=== PATIENT | male | born 1940 | race Caucasian/White ===

== ENCOUNTER 2019-12-06 12:45 | Emergency (ER) | payer OTHER ==
[2019-12-06] MEDS ORDERED: AMOX/K CLAV 875 MG TAB ONE (13:18)
[2019-12-06] MEDS ORDERED: TETANUS & DIPHTHERIA TOX,ADULT 0.5 ML VIAL ONE (13:18)
--- NOTE | 2019-12-06 13:45 | EDPHYS ---
Physician Documentation [facility] Name: Sylvester Vazquez Age: 79 yrs Sex: Male : 1940 Arrival Date: 12/06/2019 Time: 12:48 Bed 5 Private MD: Gabriella George C ED Physician Lew Talley HPI: 12/06 13:33 This 79 yrs old Male presents to ER via Ambulatory with complaints of Cat la1 Bite. 13:33 The patient was bitten on the right hand, by a cat, while approaching the animal, at la1 home. Onset: The symptoms/episode began/occurred last night. Animal information: The animal was reported to appear healthy. Animal's vaccinations are up to date. Secondary to the bite the patient reports multiple lacerations, that are superficial. Associated signs and symptoms: Pertinent positives: erythema at site, tenderness, Pertinent negatives: fever, numbness distal to wound. Severity of symptoms: At their worst the symptoms were mild. The patient has not experienced similar symptoms in the past. Historical: - Allergies: 13:00 No Known Allergies; aa5 - Immunization history:: Last tetanus immunization: unknown. - Coronavirus screen:: The patient has NOT traveled to [place], [place], or [place] in the past 14 days. The patient has NOT had contact with known/suspected case of Coronavirus?. - Social history:: Smoking status: Patient denies any tobacco usage or history of. - Ebola Screening: : No symptoms or risks identified at this time. ROS: 13:34 Constitutional: Negative for fever, chills, and weight loss, Eyes: Negative for injury, la1 pain, redness, and discharge, ENT: Negative for injury, pain, and discharge, Neck: Negative for injury, pain, and swelling, Cardiovascular: Negative for chest pain, palpitations, and edema, Respiratory: Negative for shortness of breath, cough, wheezing, and pleuritic chest pain, Abdomen/GI: Negative for abdominal pain, nausea, vomiting, diarrhea, and constipation, Back: Negative for injury and pain, : Negative for injury, bleeding, discharge, and swelling. 13:34 Neuro: Negative for headache, weakness, numbness, tingling, and seizure, Endocrine: Negative for neck swelling, polydipsia, polyuria, polyphagia, and marked weight changes. 13:34 MS/extremity: Positive for erythema, laceration, pain, of the right hand. Exam: 13:35 Constitutional: This is a well developed, well nourished patient who is awake, alert, la1 and in no acute distress. Head/Face: Normocephalic, atraumatic. Eyes: Pupils equal round and reactive to light, extra-ocular motions intact. Lids and lashes normal. Conjunctiva and sclera are non-icteric and not injected. Cornea within normal limits. Periorbital areas with no swelling, redness, or edema. ENT: Mucous membranes moist. Neck: Trachea midline, Chest/axilla: Normal chest wall appearance and motion. Cardiovascular: Regular rate and rhythm with a normal S1 and S2. Respiratory: Lungs have equal breath sounds bilaterally, clear to auscultation Abdomen/GI: Soft, non-tender, with normal bowel sounds. Back: No spinal tenderness. No costovertebral tenderness. Full range of motion. 13:35 Skin: Appearance: normal except for affected area, injury, laceration(s), that can be described as irregular, jagged, without bleeding, superficial to right hand and wrist, erythema that is mild to dorsum of right hand, NVI, FROM.. Vital Signs: 13:00 Weight 81.65 kg (R); Height 6 ft. 1 in. (185.42 cm) (R); Pain 5/10; aa5 13:04 BP 155 / 75; Pulse 76; Resp 17; Temp 97.6(TE); Pulse Ox 96% on R/A; tw2 13:00 Body Mass Index 23.75 (81.65 kg, 185.42 cm) aa5 MDM: 12:54 Patient medically screened. la1 13:38 Data reviewed: vital signs, nurses notes, radiologic studies, and as a result, I will la1 discharge patient. Data interpreted: Pulse oximetry: on room air. Counseling: I had a detailed discussion with the patient and/or guardian regarding: the historical points, exam findings, and any diagnostic results supporting the discharge/admit diagnosis, radiology results, the need for outpatient follow up, a hand specialist, to return to the emergency department if symptoms worsen or persist or if there are any questions or concerns that arise at home. Special discussion: I discussed in detail with the patient the higher chance of wound infection based on his presenting history. 12/06 13:03 Order name: Hand Right 3 View XRAY la1 Administered Medications: 13:21 Drug: Augmentin 875 mg Route: PO; jl7 13:47 Follow up: Response: No adverse reaction 13:22 Drug: Tetanus-Diphtheria Toxoid Adult 0.5 ml {[employer]: [employer]. Exp: jl7 09/29/2021. Lot #: [id number]. } Route: IM; Site: right deltoid; 13:47 Follow up: Response: No adverse reaction 7 Disposition: 13:50 Co-signature as Attending Physician, Lew Talley MD. rn Disposition: 12/06/19 13:39 Discharged to Home. Impression: Cat bite to right hand. - Condition is Stable. - Discharge Instructions: Animal Bite, Liob-ax-Dgqb, Wound Check, Animal Bite. - Prescriptions for Augmentin 875- 125 mg Oral Tablet - take 1 tablet by ORAL route every 12 hours for 10 days; 20 tablet. - Medication Reconciliation Form, Thank You Letter, Antibiotic Education form. - Follow up: Private Physician; When: 2 - 3 days; Reason: Recheck today's complaints, Re-evaluation by your physician. - Problem is new. - Symptoms have improved. Signatures: Dispatcher [employer] EDMS Lew Talley MD MD rn Calderon, Audri RN RN aa5 Marco Anne, ELECTRIC PILE DRIVER OPERATOR-C ELECTRIC PILE DRIVER OPERATOR-Cla1 Iris Forbes RN RN jl7 Corrections: (The following items were deleted from the chart) 13:49 13:39 12/06/2019 13:39 Discharged to Home. Impression: Cat bite to right hand. jl7 Condition is Stable. Forms are Medication Reconciliation Form, Thank You Letter, Antibiotic Education, Prescription Opioid Use. Follow up: Private Physician; When: 2 - 3 days; Reason: Recheck today's complaints, Re-evaluation by your physician. Problem is new. Symptoms have improved. la1
--- NOTE | 2019-12-06 13:45 | ER ---
Nurse's Notes [facility] Name: Sylvester Vazquez Age: 79 yrs Sex: Male : 1940 Arrival Date: 12/06/2019 Time: 12:48 Bed 5 Private MD: Gabriella George C Diagnosis: Cat bite to right hand Presentation: 12/06 12:50 Presenting complaint: Patient states: "my cat bit me last night". Multiple bite corea aa5 noted to right hand and right wrist. 12:50 Transition of care: patient was not received from another setting of care. Onset of aa5 symptoms was December 2019. Risk Assessment: Do you want to hurt yourself or someone else? Patient reports no desire to harm self or others. Initial Sepsis Screen: Does the patient meet any 2 criteria? No. Patient's initial sepsis screen is negative. Does the patient have a suspected source of infection? No. Patient's initial sepsis screen is negative. Care prior to arrival: None. 12:50 Acuity: MIN 4 aa5 12:50 Method Of Arrival: Ambulatory aa5 Triage Assessment: 12:55 Bite description: bite sustained to right hand was sustained 12-24 hours ago. by a cat. tw2 General: Appears in no apparent distress. Behavior is calm, cooperative, appropriate for age. Pain: Complains of pain in right hand. 13:46 Bite description: animal information: vaccination(s) is unknown. jl7 Historical: - Allergies: 13:00 No Known Allergies; aa5 - Immunization history:: Last tetanus immunization: unknown. - Coronavirus screen:: The patient has NOT traveled to [place], [place], or [place] in the past 14 days. The patient has NOT had contact with known/suspected case of Coronavirus?. - Social history:: Smoking status: Patient denies any tobacco usage or history of. - Ebola Screening: : No symptoms or risks identified at this time. Screenin:52 Abuse screen: Denies threats or abuse. Nutritional screening: No deficits noted. tw2 Tuberculosis screening: No symptoms or risk factors identified. Fall Risk Secondary diagnosis (15 points) impaired mobility. Assessment: 12:52 General: Appears in no apparent distress. Behavior is calm, cooperative, appropriate tw2 for age. Neuro: Level of Consciousness is awake, alert, obeys commands, Oriented to person, place, time, situation. Cardiovascular: Patient's skin is warm and dry. Respiratory: Airway is patent Respiratory effort is even, unlabored, Respiratory pattern is regular, symmetrical. GI: No signs and/or symptoms were reported involving the gastrointestinal system. Derm: Skin is intact, is healthy with good turgor, Skin is pink, warm \\T\\ dry. Injury Description: Bite sustained to right hand caused by a cat, is full thickness, infected. 13:48 Reassessment: Patient appears in no apparent distress at this time. No changes from tw2 previously documented assessment. Patient and/or family updated on plan of care and expected duration. Pain level reassessed. Patient is alert, oriented x 3, equal unlabored respirations, skin warm/dry/pink. Vital Signs: 13:00 Weight 81.65 kg (R); Height 6 ft. 1 in. (185.42 cm) (R); Pain 5/10; aa5 13:04 BP 155 / 75; Pulse 76; Resp 17; Temp 97.6(TE); Pulse Ox 96% on R/A; tw2 13:00 Body Mass Index 23.75 (81.65 kg, 185.42 cm) aa5 ED Course: 12:48 Patient arrived in ED. mr 12:49 Gabriella George MD is Private Physician. mr 12:50 Marco Anne [facility]-C [facility]. la1 12:50 Lew Talley MD is Attending Physician. la1 12:50 Arm band placed on. aa5 12:50 Arm band placed on Patient placed in an exam room, on a stretcher. aa5 12:52 Cheryl Hurd RN is Primary Nurse. tw2 12:59 Triage completed. aa5 13:00 Patient has correct armband on for positive identification. Bed in low position. Call jl7 light in reach. Side rails up X 1. 13:48 No provider procedures requiring assistance completed. Patient did not have IV access jl7 during this emergency room visit. Administered Medications: 13:21 Drug: Augmentin 875 mg Route: PO; jl7 13:47 Follow up: Response: No adverse reaction jl7 13:22 Drug: Tetanus-Diphtheria Toxoid Adult 0.5 ml {[employer]: [employer]. Exp: jl7 09/29/2021. Lot #: [id number]. } Route: IM; Site: right deltoid; 13:47 Follow up: Response: No adverse reaction jl7 Outcome: 13:39 Discharge ordered by MD. colindres 13:48 Discharged to home ambulatory. jl7 13:48 Condition: stable 13:48 Discharge instructions given to patient, family, Instructed on discharge instructions, follow up and referral plans. medication usage, Demonstrated understanding of instructions, follow-up care, medications, Prescriptions given X 1. 13:49 Patient left the ED. jl7 Signatures: Judi Craig BrendanMaria Teresa, RN RN aa5 Marco Anne, ESCROW AGENT-C ESCROW AGENT-Cla1 Cheryl Hurd RN RN tw2 Iris Forbes RN RN jl7 Corrections: (The following items were deleted from the chart) 12:57 12:52 Arm band placed on tw2 aa5
--- NOTE | 2019-12-06 13:50 | RAD REPORT ---
EXAM DESCRIPTION: RAD - Hand Right 3 View - 12/06/2019 1:38 pm CLINICAL HISTORY: Right hand pain status post cat bite FINDINGS: No fracture or dislocation is seen. A radiopaque foreign body is not seen
== END 2019-12-06 13:49 | disposition home or self-care (01) ==
LOC: ER 12:45
DX: S61.451A Open bite of right hand, initial encounter (principal); W55.01XA Bitten by cat, initial encounter; Y93.9 Activity, unspecified; Y92.9 Unspecified place or not applicable; Z23 Encounter for immunization
CPT/HCPCS: 90471; 90714; 99283

== ENCOUNTER 2021-03-21 06:24 | Day surgery (SDC) | payer OTHER ==
[2021-03-19 12:43] LABS: Basophils % 0.6 % (0-1.3); Hematocrit 40.3 % (39.6-49.0); Lymphocytes % 13.7 % (15.3-44.8); MPV 8.1 fL (7.6-11.3); RBC Red Blood Cell Count 4.02 M/uL (4.33-5.43)
[2021-03-19 12:55] LABS: Potassium 5.1 mmol/L (3.5-5.1)
[2021-03-21] MEDS ORDERED: CEFAZOLIN/SWI 1gm 1 GM/10 ML SYR ONE (07:01)
[2021-03-21] MEDS ORDERED: Ringers Lactate 1,000 ML IV ONE (07:01)
[2021-03-21] MEDS ORDERED: propofoL 200 MG/20 ML VIAL IV ONE (07:29)
[2021-03-21] MEDS ORDERED: LIDOCAINE 1% MPF 5 ML VIAL ONE (07:29)
[2021-03-21] MEDS ORDERED: FENTANYL CITR 100 MCG/2 ML ONE (07:29)
[2021-03-21] MEDS ORDERED: KETOROLAC 30 MG/ML INJ ONE (08:06)
[2021-03-21] MEDS ORDERED: ONDANSETRON 4 MG/2 ML VIAL ONE (08:09)
--- NOTE | 2021-03-21 08:18 | P.BOP ---
Preoperative diagnosis: left knee pain with mechanical symptoms Postoperative diagnosis: Medial and lateral meniscal tears Primary procedure: debridement of medial and lateral meniscal tears Estimated blood loss: <10 ccs Anesthesia: General Complications: None Transferred to: Recovery Room
[2021-03-21 08:38] VITALS: TEMP 97
--- NOTE | 2021-03-21 08:40 | OP ---
Date of Procedure: 03/21/2021 Surgeon: Jordan Logan MD Preoperative Diagnosis: Left knee pain with mechanical symptoms. Postoperative Diagnosis: Left knee pain with mechanical symptoms. Procedure: Left knee arthroscopy with debridement of medial meniscal tear and lateral meniscal tear. Estimated Blood Loss: Less than 10 mL. Complications: No complications. Pathology Specimens: No pathology specimens. Indication For Operation: The patient is an 80-year-old male, who is a very active golfer, who came to see me with complaints of pain related to his left knee. X-rays were taken, which did not demonst rate very significant arthritic changes; however, the patient responded well to a corticosteroid inje ction and conservative measures. Unfortunately, his pain returned. Because of this, we obtained an MRI which demonstrated a probable medial meniscal tear. Despite this, we decided to continue to carlos t this conservatively with an injection and continued conservative management. He has had recurrent mechanical type symptoms and at this time requests more definitive treatment if possible. Risks, vincenzo efits, and alternatives to arthroscopy have been discussed with him. He states he understands things as presented and wishes to proceed. Description Of Procedure: The patient was taken to the operating room and placed in supine position. General anesthesia was obtained by staff. Following this, a well-padded tourniquet was placed on t he superior left thigh. Left lower extremity was prepped and draped in usual sterile fashion for pro cedure. Following this, a standard superior and medial arthroscopy portal was then placed with liber ation of a few mL of rather normal-appearing synovial fluid. This was followed by placement of infer ior lateral arthroscopy portal. The knee was then sequentially examined including the suprapatellar pouch, medial and lateral compartments, medial and lateral gutters as well as the notch and patellofe moral joint. Pertinent findings included what appeared to be a tear of the medial meniscus near its midbody portion with some overall fraying along its periphery. There were also found to be some henry ges of the tibial cartilage directly underlying this. On the lateral aspect, there did appear to be a small ribbon of very peripheral tear of the lateral meniscus. After this, a standard inferior and medial arthroscopy portal was then established using direct vision. A 3.5 shaver was then used to de bride back the medial meniscus to a firm, well contoured base which was hook stable to probe, palpati on throughout and a small amount of unstable chondral tissue was also removed directly underneath it. This was followed by removal of the small ribbon of the anterior horn of the lateral meniscus. The knee was again examined in all the above areas. No further pathology seen, which was amenable to ar throscopic intervention. Inferior arthroscopy portal was then stapled shut. Superior and medial art hroscopic portal was then stable after placement of Marcaine with epinephrine. The patient was then placed in a well-padded sterile dressing, awakened, and taken to recovery room in good condition. No complications. SE/MODL Voice ID: [id number] Report ID: [id number]
[2021-03-21 13:44] VITALS: BP 159/62; O2SAT 97
== END 2021-03-21 10:00 | disposition home or self-care (01) ==
LOC: OR 06:24
PROVIDERS: ATTEND Orthopaedic Surgery
PROC: 0SBD4ZZ Excision of Left Knee Joint, Percutaneous Endoscopic Approach (ICD-10-PCS; principal; 2021-03-21 07:30)
DX: M25.562 Pain in left knee (principal); Z20.822 Contact with and (suspected) exposure to COVID-19
CPT/HCPCS: 93005; 85025; 80048; 36415; 29877; U0003; J2704; J3010; J0690; J7120; J2405

== ENCOUNTER 2024-03-26 08:52 | Emergency (ER) | payer OTHER ==
--- OUTSIDE RECORDS SUMMARY | 2024-03-26 08:55 | XMS REPORT | Continuity of Care Document ---
Author Name Unknown Address [address] [facility] [address] [place] [address] [facility] thconnect Address [address] [facility] [address] [place] [address] Care Team Providers Care Executive Vp Name Role Phone YONY HERNANDEZ Primary Care Physician UnavailYony Kemp Attending Clinician Unavailable ANDRÉS LYON Attending Clinician Unavailab sandi Hooks, Ang Db Test Attending Clinician UnavailLane Gooden DO Attending Clinician [phone] Ashley Stovall Attending Clinician [phone] ASHLEY MINER Attending Clinician Unavailable LANE HOFFMAN Attending Clinician Unavail able Nurse, Adc Pob Immunization Attending Clinician Andrés Lawler MD Attending Clinician [phone] Doctor Unassigned, [place] Attending Clinician Shira Colvin CRNA Attending Clinician [phone] Demetra Joyce MD Attending Clinician [phone] Pob, Adc Lab Main Attending Clinician ANDRÉS Rankin Admitting Clinician Andrés Lemon MD Admitting Clinician [phone] Payers Payer Name Policy Type Policy Number Effective Date Expirati on Date Source [employer] MANAGED MEDICARE PPO-[id number] 2020 00:00:00 Allergies, Adverse Reactions, Alerts Allergy Name Allergy Type Status Severity Reaction(s) Onset Date Inactive Date Treating Clinician Comments Source CODEINE DRUG INGREDI Active Unknown-Cmnt 04-22 00:00: 00 [facility] Codeine Propensi ty to adverse reaction s Active Unknown - See comments 04-22 00:00: 00 Unable to sleep [facility] Social History Social Habit Start Date Stop Date Quantity Comments Source Exposure to SARS-CoV-2 (event) Unable to assess [facility] Tobacco use and exposure 2021-04-29 00:00:00 2021-04-29 00:00:00 Never used [facility] Sex Assigned At 1940 00:00:00 1940 00:00:00 [facility] Smoking Status Start Date Stop Date Source Unknown if ever smoked [facility] Former smoker 2021-04-29 00:00:00 2021-04-29 00:00:00 [facility] Medications Ordered Medication Name Filled Medication Name Start Date Stop Date Current Medication? Ordering Clinician Indication Dosage Frequency Signature (SIG) Comments Components Source amLODIPine 5 mg tablet 05-28 19:54: 59 Yes 5mg Take 5 mg by mouth daily. [facility] metoprolol succinate XL 25 mg 24 hr tablet 05-28 19:54: 59 Yes 25mg Take 25 mg by mouth daily. [facility] famotidine (PEPCID AC ORAL) 05-28 19:54: 59 Yes Take by mouth. [facility] ALPRAZolam 0.25 mg tablet 05-28 19:54: 59 Yes .25mg Take 0.25 mg by mouth 3 (three) times daily. [facility] rosuvastati n 5 mg tablet 05-28 19:54: 59 Yes 5mg Take 5 mg by mouth daily. [facility] dexamethaso ne (DECADRON PHOSPHATE) injection 05-28 18:11: 00 Yes PRN, Starting Wed05/28/21 at 1311, Until Discontinu ed, Routine, Intra-op [facility] EPINEPHrine 1:1,000 (1 mg/mL) (ADRENALIN) injection 05-28 18:11: 00 Yes PRN, Starting Wed05/28/21 at 1311, Until Discontinu ed, Routine, Intra-op [facility] DUOVISC (DUOVISC VISCO ELASTIC) 3 %-4 %(0.5 mL) 1 % (0.55 mL) intraocular injection 05-28 18:11: 00 Yes PRN, Starting Wed05/28/21 at 1311, Until Discontinu ed, Routine, [facility]-op [facility] ceFAZolin (ANCEF) injection 05-28 18:10: 00 Yes PRN, Starting Wed05/28/21 at 1310, Until Discontinu ed, JARRED, Intra-op [facility] carbachoL (MIOSTAT) 0.01 % intraocular injection 05-28 18:10: 00 Yes PRN, Starting Wed05/28/21 at 1310, Until Discontinu ed, Routine, Intra-op [facility] neomycin-po lymyxin-dex amethasone (MAXITROL) 3.5 mg/g-10,000 unit/g-0.1 % ophthalmic ointment 05-28 18:09: 00 Yes PRN, Starting Wed05/28/21 at 1309, Until Discontinu ed, Routine, Intra-op [facility] sodium chloride (NS) injection 05-28 18:09: 00 Yes PRN, Starting Wed05/28/21 at 1309, Until Discontinu ed, Routine, Intra-op [facility] balanced salt irrig soln comb1 (BSS PLUS) ophthalmic solution 500 mL bag 05-28 18:02: 00 Yes PRN, Starting Wed05/28/21 at 1302, Until Discontinu ed, Routine, Intra-op [facility] water for irrigation irrigation solution 05-28 17:58: 00 Yes PRN, Starting Wed05/28/21 at 1258, Until Discontinu ed, Routine, Intra-op [facility] Hyaluronida se, Human Recomb. (HYLENEX) injection 05-28 17:54: 00 Yes PRN, Starting Wed05/28/21 at 1254, Until Discontinu ed, Routine, Intra-op [facility] eye block syringe 11 mL 05-28 17:54: 00 Yes PRN, Starting Wed05/28/21 at 1254, Until Discontinu ed, Intra-op [facility] mydriatic #5 ophthalmic solution 0.5 mL syringe 05-28 17:00: 00 05-28 16:53 :00 No .5mL 0.5 mL, Left Eye, ONCE, 1 dose, Wed05/28/21 at 1200, Routine, DSU Pre-op [facility] lactated ringers IV infusion 1,000 mL 05-28 17:00: 00 05-28 17:07 :00 No 1000mL at 42 mL/hr, 1,000 mL, IV Infusion, ONCE, 1 dose, Wed05/28/21 at 1200, Routine, DSU Pre-op [facility] amLODIPine 5 mg tablet 05-28 14:54: 59 Yes 5mg Take 5 mg by mouth daily. [facility] metoprolol succinate XL 25 mg 24 hr tablet 05-28 14:54: 59 Yes 25mg Take 25 mg by mouth daily. [facility] famotidine (PEPCID AC ORAL) 05-28 14:54: 59 Yes Take by mouth. [facility] ALPRAZolam 0.25 mg tablet 05-28 14:54: 59 Yes .25mg Take 0.25 mg by mouth 3 (three) times daily. [facility] rosuvastati n 5 mg tablet 05-28 14:54: 59 Yes 5mg Take 5 mg by mouth daily. [facility] ALPRAZolam 0.25 mg tablet 04-30 18:02: 17 Yes .25mg Take 0.25 mg by mouth 3 (three) times daily. [facility] rosuvastati n 5 mg tablet 04-30 18:02: 17 Yes 5mg Take 5 mg by mouth daily. [facility] amLODIPine 5 mg tablet 04-30 18:02: 17 Yes 5mg Take 5 mg by mouth daily. [facility] metoprolol succinate XL 25 mg 24 hr tablet 04-30 18:02: 17 Yes 25mg Take 25 mg by mouth daily. [facility] famotidine (PEPCID AC ORAL) 04-30 18:02: 17 Yes Take by mouth. [facility] amLODIPine 5 mg tablet 04-30 17:52: 49 Yes 5mg Take 5 mg by mouth daily. [facility] metoprolol succinate XL 25 mg 24 hr tablet 04-30 17:52: 49 Yes 25mg Take 25 mg by mouth daily. [facility] famotidine (PEPCID AC ORAL) 04-30 17:52: 49 Yes Take by mouth. [facility] ALPRAZolam 0.25 mg tablet 04-30 17:52: 49 Yes .25mg Take 0.25 mg by mouth 3 (three) times daily. [facility] rosuvastati n 5 mg tablet 04-30 17:52: 49 Yes 5mg Take 5 mg by mouth daily. [facility] water for irrigation irrigation solution 04-30 17:09: 00 Yes PRN, Starting Wed04/30/21 at 1209, Until Discontinu ed, Routine, Intra-op [facility] sodium chloride (NS) injection 04-30 17:08: 00 Yes PRN, Starting Wed04/30/21 at 1208, Until Discontinu ed, Routine, Intra-op [facility] neomycin-po lymyxin-dex amethasone (MAXITROL) 3.5 mg/g-10,000 unit/g-0.1 % ophthalmic ointment 04-30 17:08: 00 Yes PRN, Starting Wed04/30/21 at 1208, Until Discontinu ed, Routine, Intra-op [facility] Hyaluronida se, Human Recomb. (HYLENEX) injection 04-30 17:08: 00 Yes PRN, Starting Wed04/30/21 at 1208, Until Discontinu ed, Routine, Intra-op [facility] eye block syringe 11 mL 04-30 17:07: 00 Yes PRN, Starting Wed04/30/21 at 1207, Until Discontinu ed, Intra-op [facility] lidocaine 2% (XYLOCAINE) 20 mg/mL (2 %) injection 04-30 17:07: 00 04-30 17:32 :23 No Intravenou s, ONCE INTRA PROCEDURE, Starting Wed04/30/21 at 1207, Until Wed04/30/21 at 1232, Routine, Intra-op [facility] propofoL IV infusion 04-30 17:07: 00 04-30 17:32 :23 No Slow IV Push, ONCE INTRA PROCEDURE, Starting Wed04/30/21 at 1207, Until Wed04/30/21 at 1232, Routine, Intra-op [facility] EPINEPHrine 1:1,000 (1 mg/mL) (ADRENALIN) injection 04-30 17:06: 00 Yes PRN, Starting Wed04/30/21 at 1206, Until Discontinu ed, Routine, Intra-op [facility] DUOVISC (DUOVISC VISCO ELASTIC) 3 %-4 %(0.5 mL) 1 % (0.55 mL) intraocular injection 04-30 17:06: 00 Yes PRN, Starting Wed04/30/21 at 1206, Until Discontinu ed, Routine, Intra-op [facility] dexamethaso ne (DECADRON PHOSPHATE) injection 04-30 17:05: 00 Yes PRN, Starting Wed04/30/21 at 1205, Until Discontinu ed, Routine, Intra-op [facility] ceFAZolin (ANCEF) injection 04-30 17:05: 00 Yes PRN, Starting Wed04/30/21 at 1205, Until Discontinu ed, JARRED, Intra-op [facility] carbachoL (MIOSTAT) 0.01 % intraocular injection 04-30 16:53: 00 Yes PRN, Starting Wed04/30/21 at 1153, Until Discontinu ed, Routine, Intra-op [facility] balanced salt irrig soln comb1 (BSS PLUS) ophthalmic solution 500 mL bag 04-30 16:52: 00 Yes PRN, Starting Wed04/30/21 at 1152, Until Discontinu ed, Routine, Intra-op [facility] lactated ringers IV infusion 04-30 15:22: 00 04-30 17:32 :23 No Intravenou s, CONTINUOUS PRN, Starting Wed04/30/21 at 1022, Until Wed04/30/21 at 1232, Routine, Intra-op [facility] mydriatic #5 ophthalmic solution 0.5 mL syringe 04-30 15:15: 00 04-30 15:23 :00 No .5mL 0.5 mL, Right Eye, ONCE, 1 dose, Wed04/30/21 at 1015, Routine, DSU Pre-op [facility] lactated ringers IV infusion 1,000 mL 04-30 15:15: 00 04-30 15:23 :00 No 1000mL at 42 mL/hr, 1,000 mL, IV Infusion, ONCE, 1 dose, Wed04/30/21 at 1015, Routine, DSU Pre-op [facility] Vital Signs Vital Name Observation Time Observation Value Comments S ource Systolic blood pressure 2021-05-28 18:35:00 164 mm[Hg] [facility] Diastolic blood pressure 2021-05-28 18:35:00 67 mm[Hg] [facility] Heart rate 2021-05-28 18:35:00 54 /min [facility] Respiratory rate 2021-05-28 18:35:00 16 /min [facility] Oxygen saturation in Arterial blood by Pulse oximetry 2021-05-28 18:35:00 97 /min [facility] Body temperature 2021-05-28 18:20:00 36.94 Hetal [facility] Body height 2021-05-14 18:53:00 185.5 cm [facility] Body weight 2021-05-14 18:53:00 88.5 kg [facility] BMI 2021-05-14 18:53:00 25.72 kg/m2 [facility] Systolic blood pressure 2021-05-28 16:54:00 159 mm[Hg] [facility] Diastolic blood pressure 2021-05-28 16:54:00 79 mm[Hg] [facility] Heart rate 2021-05-28 16:54:00 62 /min [facility] Body temperature 2021-05-28 16:54:00 36.89 Hetal [facility] Respiratory rate 2021-05-28 16:54:00 18 /min [facility] Oxygen saturation in Arterial blood by Pulse oximetry 2021-05-28 16:54:00 98 /min [facility] Body height 2021-05-14 18:53:00 185.5 cm [facility] Body weight 2021-05-14 18:53:00 88.5 kg [facility] BMI 2021-05-14 18:53:00 25.72 kg/m2 [facility] Systolic blood pressure 2021-04-30 17:45:00 173 mm[Hg] [facility] Diastolic blood pressure 2021-04-30 17:45:00 96 mm[Hg] [facility] Heart rate 2021-04-30 17:45:00 55 /min [facility] Body temperature 2021-04-30 17:45:00 36.61 Hetal [facility] Respiratory rate 2021-04-30 17:45:00 20 /min [facility] Oxygen saturation in Arterial blood by Pulse oximetry 2021-04-30 17:45:00 96 /min [facility] Body height 2021-04-22 19:07:00 185.5 cm [facility] Body weight 2021-04-22 19:07:00 88.5 kg [facility] BMI 2021-04-22 19:07:00 25.72 kg/m2 [facility] Respiratory rate 2021-04-30 17:32:00 21 /min [facility] Systolic blood pressure 2021-04-30 15:25:00 185 mm[Hg] [facility] Diastolic blood pressure 2021-04-30 15:25:00 76 mm[Hg] Milfay o [facility] Heart rate 2021-04-30 15:25:00 66 /min [facility] Body temperature 2021-04-30 15:25:00 36.22 Hetal [facility] Respiratory rate 2021-04-30 15:25:00 13 /min [facility] Oxygen saturation in Arterial blood by Pulse oximetry 2021-04-30 15:25:00 97 /min Milfay o [facility] Body height 2021-04-22 19:07:00 185.5 cm [facility] Body weight 2021-04-22 19:07:00 88.5 kg [facility] BMI 2021-04-22 19:07:00 25.72 kg/m2 [facility] Procedures Procedure Date / Time Performed Performing Clinician Source SARS-COV-2 COVID-19 VACCINE BOOSTER,0.25ML,IM (MODERNA) 2021-10-08 19:19:57 Doctor Unassigned, [place] [facility] PHACOEMULSIFICATION OF CATARACT WITH INTRAOCULAR LENS IMPLANT 2021-05-28 17:43:00 Andrés Lyon [facility] CONSENT/REFUSAL FOR DIAGNOSI S AND TREATMENT 2021-05-26 16:25:31 Doctor Unassigned, [place] [facility] ASSIGNMENT OF BENEFITS 2021-05-26 16:25:11 Doctor Unassigned, [place] [facility] PHACOEMULSIFICATION OF CATARACT WITH INTRAOCULAR LENS IMPLANT 2021-04-30 16:57:00 Andrés Lyon [facility] Encounters Start Date/Time End Date/Time Encounter Type Admission Type Attending Clinicians Care Facility Care Department Encounter ID Source 2023-09-30 14:17:01 [id number] [facility] 2021-09-01 09:50:53 Outpatient R ANDRÉS LYON [facility] [id number] [facility] 2021-09-01 03:53:52 Outpatient R ANDRÉS LYON [facility] [id number] [facility] 2021-11-01 17:30:00 2021-11-01 17:45:00 Laboratory Only Only, Ang Db Test Lane Hoffman, [facility] [id number] [facility] 2021-11-01 17:30:00 2021-11-01 17:30:00 Outpatient ASHLEY SANDERS [facility] [id number] [facility] 2021-10-08 13:10:00 2021-10-08 13:10:[address] ARAUJO [facility] [id number] [facility] 2021-10-08 13:01:10 2021-10-08 13:01:17 Imm/Inj Visit Nurse, Sonia Pob Immunizatio n Lane Hoffman [facility] [id number] [facility] 2021-05-28 11:45:00 2021-05-28 13:45:00 Hospital Encounter CamronAndrés [facility] [id number] [facility] 2021-05-28 12:40:00 2021-05-28 13:19:00 Surgery Andrés Lyon [facility] [id number] [facility] 2021-05-26 00:00:00 2021-05-26 00:00:00 Orders Only Doctor Unassigned, [place] [facility] [id number] [facility] 2021-04-30 10:06:00 2021-04-30 13:01:00 Hospital Encounter Andrés Lyon [facility] [place] [id number] [facility] 2021-04-30 12:02:00 2021-04-30 12:34:00 Anesthesia Event Shira Snyder Stacey [facility] [id number] [facility] 2021-04-30 11:34:00 2021-04-30 12:14:00 Surgery Andrés Lyon [facility] [id number] [facility] 2021-04-25 11:57:49 2021-04-25 12:12:49 Mobility Developer Visit Pob, Adc Lab Main Andrés Lyon [facility] [id number] [facility] 2021-04-25 11:15:00 2021-04-25 11:15:00 Outpatient R ANDRÉS LYON [facility] [id number] [facility]
--- NOTE | 2024-03-26 09:18 | ER ---
Nurse's Notes [facility] Name: Sylvester Vazquez Age: 84 yrs Sex: Male : 1940 Arrival Date: 03/26/2024 Time: 08:52 Bed 6 Private MD: Diagnosis: Cellulitis of chest wall Presentation: 03/26 09:01 Coronavirus screen: At this time, the client does not indicate any symptoms associated ld1 with coronavirus-19. Ebola Screen: No symptoms or risks identified at this time. Risk Assessment: Do you want to hurt yourself or someone else? Patient reports no desire to harm self or others. Onset of symptoms was March 26, 2024. 09: Method Of Arrival: Ambulatory ld1 09: Acuity: MIN 4 ld1 09: Chief complaint:. ld1 09:03 Chief complaint: Patient states: Bug bite to neck. ld1 Triage Assessment: 09:02 Bite description: bite sustained to neck by an unknown animal, animal information: ld1 vaccination(s) is unknown. General: Appears in no apparent distress. comfortable, Behavior is calm, cooperative, appropriate for age. Pain: Denies pain. EENT: No signs and/or symptoms were reported regarding the EENT system. Neuro: Level of Consciousness is awake, alert, obeys commands, Oriented to person, place, time, situation. Cardiovascular: Capillary refill < 3 seconds Patient's skin is warm and dry. Respiratory: Airway is patent Respiratory effort is even, unlabored. GI: Abdomen is flat, non-distended. : No signs and/or symptoms were reported regarding the genitourinary system. Derm: No signs and/or symptoms reported regarding the dermatologic system. Musculoskeletal: No signs and/or symptoms reported regarding the musculoskeletal system. Historical: - Allergies: 09:03 No Known Allergies; kc6 - PMHx: 09:02 Colorectal cancer; ld1 09:03 Hypertensive disorder; Anxiety; Hypercholesterolemia; kc6 - PSHx: 09:02 Tonsillectomy; ld1 - Immunization history:: Adult Immunizations up to date. - Infectious Disease History:: Denies. - Social history:: Smoking status: Patient denies any tobacco usage or history of. - Family history:: not pertinent. Screenin:04 [facility] ED Fall Risk Assessment (Adult) History of falling in the last 3 months, ld1 including since admission No falls in past 3 months (0 pts). Abuse screen: Denies threats or abuse. Denies injuries from another. Nutritional screening: No deficits noted. Tuberculosis screening: No symptoms or risk factors identified. Assessment: 09:04 Reassessment: See triage assessment. ld1 Vital Signs: 09:01 Height 6 ft. 1 in. ; ld1 09:04 BP 134 / 77; Pulse 60; Resp 16 S; Pulse Ox 96% on R/A; Weight 87.54 kg (R); kc6 ED Course: 08:56 Patient arrived in ED. mg5 09:01 Triage completed. ld1 09:03 Saba Estevez, RN is Primary Nurse. kc6 09:03 Arm band placed on right wrist. ld1 09:04 Patient has correct armband on for positive identification. Placed in gown. Bed in low ld1 position. Call light in reach. Side rails up X2. monitor car operator on. Pulse ox on. NIBP on. Door closed. Noise minimized. Warm blanket given. 09:04 No provider procedures requiring assistance completed. ld1 09:08 Edison Colon MD is Attending Physician. rt 09: Patient did not have IV access during this emergency room visit. kc6 Administered Medications: No medications were administered Medication: :04 VIS not applicable for this client. ld1 Outcome: :18 Discharge ordered by . rt 09:26 Discharged to home ambulatory, kc6 09:26 Condition: good :26 Discharge instructions given to patient, Instructed on discharge instructions, follow up and referral plans. medication usage, Demonstrated understanding of instructions, follow-up care, medications, Prescriptions given X 1, 09:26 Patient left the ED. [facility] Signatures: Isabela Valle RN RN ld1 Saba Estevez RN RN kc Edison Colon MD MD rt Yesika Sahu [facility]
--- NOTE | 2024-03-26 09:18 | EDPHYS ---
Physician Documentation [facility] Name: Sylvester Vazquez Age: 84 yrs Sex: Male : 1940 Arrival Date: 03/26/2024 Time: 08:52 Bed 6 Private MD: ED Physician Edison Colon HPI: 03/26 09:34 This 84 yrs old Male presents to ER via Ambulatory with complaints of Insect Bite. rt 09:34 Patient presents to the ED with concerns for an insect bite that occurred on . rt Patient was golfing when it occurred, something hit him on the chest. He noticed a small blister area that improved. Reports some itching and irritation surrounding redness. Denies other acute complaints and symptoms are mild in severity, no other aggravating or alleviating factors.. Historical: - Allergies: 09:03 No Known Allergies; kc6 - PMHx: 09:02 Colorectal cancer; ld1 09:03 Hypertensive disorder; Anxiety; Hypercholesterolemia; kc6 - PSHx: 09:02 Tonsillectomy; ld1 - Immunization history:: Adult Immunizations up to date. - Infectious Disease History:: Denies. - Social history:: Smoking status: Patient denies any tobacco usage or history of. - Family history:: not pertinent. ROS: 09:34 Constitutional: Negative for fever, chills, and weight loss, Cardiovascular: Negative rt for chest pain, palpitations, and edema, Respiratory: Negative for shortness of breath, cough, wheezing, and pleuritic chest pain, Abdomen/GI: Negative for abdominal pain, nausea, vomiting, diarrhea, and constipation, Neuro: Negative for headache, weakness, numbness, tingling, and seizure, Psych: Negative for depression, anxiety, suicide ideation, homicidal ideation, and hallucinations, 09:34 Skin: Positive for Itching, redness, Exam: 09:34 Constitutional: This is a well developed, well nourished patient who is awake, alert, rt and in no acute distress. Head/Face: Normocephalic, atraumatic. Chest/axilla: Normal chest wall appearance and motion. Nontender with no deformity. No lesions are appreciated. Cardiovascular: Regular rate and rhythm with a normal S1 and S2. No gallops, murmurs, or rubs. Normal PMI, no JVD. No pulse deficits. Respiratory: Lungs have equal breath sounds bilaterally, clear to auscultation and percussion. No rales, rhonchi or wheezes noted. No increased work of breathing, no retractions or nasal flaring. Abdomen/GI: Soft, non-tender, with normal bowel sounds. No distension or tympany. No guarding or rebound. No evidence of tenderness throughout. Skin: Warm, dry with normal turgor. Normal color with no rashes, no lesions, and no evidence of cellulitis. MS/ Extremity: Pulses equal, no cyanosis. Neurovascular intact. Full, normal range of motion. 09:34 Skin: Mild warmth, erythema to the anterior chest, no drainable abscesses. Vital Signs: 09:01 Height 6 ft. 1 in. ; ld1 09:04 BP 134 / 77; Pulse 60; Resp 16 S; Pulse Ox 96% on R/A; Weight 87.54 kg (R); kc6 MDM: 09:09 Patient medically screened. rt 09:34 Differential Diagnosis Cellulitis, localized dermatitis. Data reviewed: vital signs, rt nurses notes. Test considered but Not performed: Other Details Stable vital signs, only minor appearing rash, do not believe that labs are indicated.. Care significantly affected by the following chronic conditions: Hypertension. Counseling: I had a detailed discussion with the patient and/or guardian regarding the historical points, exam findings, and any diagnostic results supporting the discharge/admit diagnosis, the need for outpatient follow up, to return to the emergency department if symptoms worsen or persist or if there are any questions or concerns that arise at home. Administered Medications: No medications were administered Disposition Summary: 03/26/24 09:18 Discharge Ordered Notes: Location: Home rt Problem: new rt Symptoms: have improved rt Condition: Stable rt Diagnosis - Cellulitis of chest wall rt Followup: rt - With: Private Physician - When: 2 - 3 days - Reason: Discharge Instructions: - Discharge Summary Sheet rt - Cellulitis, Adult rt Forms: - Medication Reconciliation Form rt - Antibiotic Education rt - Prescription Opioid Use rt - Patient Portal Instructions rt - Leadership Thank You Letter rt Prescriptions: - Cephalexin 500 mg Oral Capsule - take 1 capsule ORAL route every 6 hours for 10 days; 40 capsule; Refills: 0, rt Product Selection Permitted Signatures: Isabela Valle RN RN ld1 Saba Estevez RN RN kc6 Edison Colon MD MD rt
[2024-03-26 09:38] VITALS: BP 134/77; O2SAT 96
== END 2024-03-26 09:26 | disposition home or self-care (01) ==
LOC: ER 08:52
DX: L03.313 Cellulitis of chest wall (principal)
CPT/HCPCS: 99284

== ENCOUNTER 2024-04-14 08:41 | Emergency (ER) | payer OTHER ==
--- OUTSIDE RECORDS SUMMARY | 2024-04-14 08:44 | XMS REPORT | Continuity of Care Document ---
Author Name Unknown Address [address] [place] [address] [facility] thconnect Address [address] [place] [address] Care Team Providers Care Second Cutter Name Role Phone YONY HERNANDEZ Primary Care Physician UnavailYony Kemp Attending Clinician Unavailable ANDRÉS LYON Attending Clinician Unavailab sandi Hooks, Ang Db Test Attending Clinician Lane Heredia DO Attending Clinician [phone] Ashley Stovall Attending Clinician [phone] ASHLEY MINER Attending Clinician Unavailable LANE HOFFMAN Attending Clinician Unavail able Nurse, Adc Pob Immunization Attending Clinician Andrés Lawler MD Attending Clinician [phone] Doctor Unassigned, [place] Attending Clinician Shira Colvin CRNA Attending Clinician [phone] Demetra Joyce MD Attending Clinician [phone] Pob, Adc Lab Main Attending Clinician ANDRÉS Rankin Admitting Clinician Andrés Lemon MD Admitting Clinician [phone] Payers Payer Name Policy Type Policy Number Effective Date Expirati on Date Source [employer] MANAGED MEDICARE [id number] 2020 00:00:00 Allergies, Adverse Reactions, Alerts Allergy Name Allergy Type Status Severity Reaction(s) Onset Date Inactive Date Treating Clinician Comments Source CODEINE DRUG INGREDI Active Unknown-Cmnt 04-22 00:00: 00 [facility] Codeine Propensi ty to adverse reaction s Active Unknown - See comments 04-22 00:00: 00 Unable to sleep [facility] Social History Social Habit Start Date Stop Date Quantity Comments Source Exposure to SARS-CoV-2 (event) Unable to assess [facility] Tobacco use and exposure 2021-04-29 00:00:00 2021-04-29 00:00:[address] [facility] Sex Assigned At 1940 00:00:00 1940 00:00:[address] [facility] Smoking Status Start Date Stop Date Source Unknown if ever smoked [facility] Former smoker 2021-04-29 00:00:00 2021-04-29 00:00:[address] [facility] Medications Ordered Medication Name Filled Medication Name Start Date Stop Date Current Medication? Ordering Clinician Indication Dosage Frequency Signature (SIG) Comments Components Source amLODIPine 5 mg tablet 05-28 19:54: 59 Yes 5mg Take 5 mg by mouth daily. [facility] metoprolol succinate XL 25 mg 24 hr tablet 05-28 19:54: 59 Yes 25mg Take 25 mg by mouth daily. [facility] famotidine (PEPCID AC ORAL) 05-28 19:54: 59 Yes Take by mouth. [facility] ALPRAZolam 0.25 mg tablet 05-28 19:54: 59 Yes .25mg Take 0.25 mg by mouth 3 (three) times daily. [facility] rosuvastati n 5 mg tablet 05-28 19:54: 59 Yes 5mg Take 5 mg by mouth daily. [facility] dexamethaso ne (DECADRON PHOSPHATE) injection 05-28 18:11: 00 Yes PRN, Starting Wed05/28/21 at 1311, Until Discontinu ed, Routine, Intra-op [facility] EPINEPHrine 1:1,000 (1 mg/mL) (ADRENALIN) injection 05-28 18:11: 00 Yes PRN, Starting Wed05/28/21 at 1311, Until Discontinu ed, Routine, Intra-op [facility] DUOVISC (DUOVISC VISCO ELASTIC) 3 %-4 %(0.5 mL) 1 % (0.55 mL) intraocular injection 05-28 18:11: 00 Yes PRN, Starting Wed05/28/21 at 1311, Until Discontinu ed, Routine, [facility] ceFAZolin (ANCEF) injection 05-28 18:10: 00 Yes PRN, Starting Wed05/28/21 at 1310, Until Discontinu ed, JARRED, Intra-op [facility] carbachoL (MIOSTAT) 0.01 % intraocular injection 05-28 18:10: 00 Yes PRN, Starting Wed05/28/21 at 1310, Until Discontinu ed, Routine, Intra-op [facility] neomycin-po lymyxin-dex amethasone (MAXITROL) 3.5 mg/g-10,000 unit/g-0.1 % ophthalmic ointment 05-28 18:09: 00 Yes PRN, Starting Wed05/28/21 at 1309, Until Discontinu ed, Routine, Intra-op [facility] sodium chloride (NS) injection 05-28 18:09: 00 Yes PRN, Starting Wed05/28/21 at 1309, Until Discontinu ed, Routine, Intra-op [facility] balanced salt irrig soln comb1 (BSS PLUS) ophthalmic solution 500 mL bag 05-28 18:02: 00 Yes PRN, Starting Wed05/28/21 at 1302, Until Discontinu ed, Routine, Intra-op [facility] water for irrigation irrigation solution 05-28 17:58: 00 Yes PRN, Starting Wed05/28/21 at 1258, Until Discontinu ed, Routine, Intra-op [facility] Hyaluronida se, Human Recomb. (HYLENEX) injection 05-28 17:54: 00 Yes PRN, Starting Wed05/28/21 at 1254, Until Discontinu ed, Routine, Intra-op [facility] eye block syringe 11 mL 05-28 17:54: 00 Yes PRN, Starting Wed05/28/21 at 1254, Until Discontinu ed, Intra-op [facility] mydriatic #5 ophthalmic solution 0.5 mL syringe 05-28 17:00: 00 05-28 16:53 :00 No .5mL 0.5 mL, Left Eye, ONCE, 1 dose, Wed05/28/21 at 1200, Routine, DSU Pre-op [facility] lactated ringers IV infusion 1,000 mL 05-28 17:00: 00 05-28 17:07 :00 No 1000mL at 42 mL/hr, 1,000 mL, IV Infusion, ONCE, 1 dose, Wed05/28/21 at 1200, Routine, DSU Pre-op [facility] amLODIPine 5 mg tablet 05-28 14:54: 59 Yes 5mg Take 5 mg by mouth daily. [facility] metoprolol succinate XL 25 mg 24 hr tablet 05-28 14:54: 59 Yes 25mg Take 25 mg by mouth daily. [facility] famotidine (PEPCID AC ORAL) 05-28 14:54: 59 Yes Take by mouth. [facility] ALPRAZolam 0.25 mg tablet 05-28 14:54: 59 Yes .25mg Take 0.25 mg by mouth 3 (three) times daily. [facility] rosuvastati n 5 mg tablet 05-28 14:54: 59 Yes 5mg Take 5 mg by mouth daily. [facility] ALPRAZolam 0.25 mg tablet 04-30 18:02: 17 Yes .25mg Take 0.25 mg by mouth 3 (three) times daily. [facility] rosuvastati n 5 mg tablet 04-30 18:02: 17 Yes 5mg Take 5 mg by mouth daily. [facility] amLODIPine 5 mg tablet 04-30 18:02: 17 Yes 5mg Take 5 mg by mouth daily. [facility] metoprolol succinate XL 25 mg 24 hr tablet 04-30 18:02: 17 Yes 25mg Take 25 mg by mouth daily. [facility] famotidine (PEPCID AC ORAL) 04-30 18:02: 17 Yes Take by mouth. [facility] amLODIPine 5 mg tablet 04-30 17:52: 49 Yes 5mg Take 5 mg by mouth daily. [facility] metoprolol succinate XL 25 mg 24 hr tablet 04-30 17:52: 49 Yes 25mg Take 25 mg by mouth daily. [facility] famotidine (PEPCID AC ORAL) 04-30 17:52: 49 Yes Take by mouth. [facility] ALPRAZolam 0.25 mg tablet 04-30 17:52: 49 Yes .25mg Take 0.25 mg by mouth 3 (three) times daily. [facility] rosuvastati n 5 mg tablet 04-30 17:52: 49 Yes 5mg Take 5 mg by mouth daily. [facility] water for irrigation irrigation solution 04-30 17:09: 00 Yes PRN, Starting Wed04/30/21 at 1209, Until Discontinu ed, Routine, Intra-op [facility] sodium chloride (NS) injection 04-30 17:08: 00 Yes PRN, Starting Wed04/30/21 at 1208, Until Discontinu ed, Routine, Intra-op [facility] neomycin-po lymyxin-dex amethasone (MAXITROL) 3.5 mg/g-10,000 unit/g-0.1 % ophthalmic ointment 04-30 17:08: 00 Yes PRN, Starting Wed04/30/21 at 1208, Until Discontinu ed, Routine, Intra-op [facility] Hyaluronida se, Human Recomb. (HYLENEX) injection 04-30 17:08: 00 Yes PRN, Starting Wed04/30/21 at 1208, Until Discontinu ed, Routine, Intra-op [facility] eye block syringe 11 mL 04-30 17:07: 00 Yes PRN, Starting Wed04/30/21 at 1207, Until Discontinu ed, Intra-op [facility] lidocaine 2% (XYLOCAINE) 20 mg/mL (2 %) injection 04-30 17:07: 00 04-30 17:32 :23 No Intravenou s, ONCE INTRA PROCEDURE, Starting Wed04/30/21 at 1207, Until Wed04/30/21 at 1232, Routine, Intra-op [facility] propofoL IV infusion 04-30 17:07: 00 04-30 17:32 :23 No Slow IV Push, ONCE INTRA PROCEDURE, Starting Wed04/30/21 at 1207, Until Wed04/30/21 at 1232, Routine, Intra-op [facility] EPINEPHrine 1:1,000 (1 mg/mL) (ADRENALIN) injection 04-30 17:06: 00 Yes PRN, Starting Wed04/30/21 at 1206, Until Discontinu ed, Routine, Intra-op [facility] DUOVISC (DUOVISC VISCO ELASTIC) 3 %-4 %(0.5 mL) 1 % (0.55 mL) intraocular injection 04-30 17:06: 00 Yes PRN, Starting Wed04/30/21 at 1206, Until Discontinu ed, Routine, Intra-op [facility] dexamethaso ne (DECADRON PHOSPHATE) injection 04-30 17:05: 00 Yes PRN, Starting Wed04/30/21 at 1205, Until Discontinu ed, Routine, Intra-op [facility] ceFAZolin (ANCEF) injection 04-30 17:05: 00 Yes PRN, Starting Wed04/30/21 at 1205, Until Discontinu ed, JARRED, Intra-op [facility] carbachoL (MIOSTAT) 0.01 % intraocular injection 04-30 16:53: 00 Yes PRN, Starting Wed04/30/21 at 1153, Until Discontinu ed, Routine, Intra-op [facility] balanced salt irrig soln comb1 (BSS PLUS) ophthalmic solution 500 mL bag 04-30 16:52: 00 Yes PRN, Starting Wed04/30/21 at 1152, Until Discontinu ed, Routine, Intra-op [facility] lactated ringers IV infusion 04-30 15:22: 00 04-30 17:32 :23 No Intravenou s, CONTINUOUS PRN, Starting Wed04/30/21 at 1022, Until Wed04/30/21 at 1232, Routine, Intra-op [facility] mydriatic #5 ophthalmic solution 0.5 mL syringe 04-30 15:15: 00 04-30 15:23 :00 No .5mL 0.5 mL, Right Eye, ONCE, 1 dose, Wed04/30/21 at 1015, Routine, DSU Pre-op [facility] lactated ringers IV infusion 1,000 mL 04-30 15:15: 00 04-30 15:23 :00 No 1000mL at 42 mL/hr, 1,000 mL, IV Infusion, ONCE, 1 dose, Wed04/30/21 at 1015, Routine, DSU Pre-op [facility] Vital Signs Vital Name Observation Time Observation Value Comments S ource Systolic blood pressure 2021-05-28 18:35:00 164 mm[Hg] General acute hospital Diastolic blood pressure 2021-05-28 18:35:00 67 mm[Hg] General acute hospital Heart rate 2021-05-28 18:35:00 54 /min [facility] Respiratory rate 2021-05-28 18:35:00 16 /min [facility] Oxygen saturation in Arterial blood by Pulse oximetry 2021-05-28 18:35:00 97 /min General acute hospital Body temperature 2021-05-28 18:20:[address] [facility] Body height 2021-05-14 18:53:00 185.5 cm [facility] Body weight 2021-05-14 18:53:00 88.5 kg [facility] BMI 2021-05-14 18:53:00 25.72 kg/m2 [facility] Systolic blood pressure 2021-05-28 16:54:00 159 mm[Hg] General acute hospital Diastolic blood pressure 2021-05-28 16:54:00 79 mm[Hg] General acute hospital Heart rate 2021-05-28 16:54:00 62 /min [facility] Body temperature 2021-05-28 16:54:[address] [facility] Respiratory rate 2021-05-28 16:54:00 18 /min [facility] Oxygen saturation in Arterial blood by Pulse oximetry 2021-05-28 16:54:00 98 /min General acute hospital Body height 2021-05-14 18:53:00 185.5 cm [facility] Body weight 2021-05-14 18:53:00 88.5 kg [facility] BMI 2021-05-14 18:53:00 25.72 kg/m2 [facility] Systolic blood pressure 2021-04-30 17:45:00 173 mm[Hg] General acute hospital Diastolic blood pressure 2021-04-30 17:45:00 96 mm[Hg] General acute hospital Heart rate 2021-04-30 17:45:00 55 /min [facility] Body temperature 2021-04-30 17:45:[address] [facility] Respiratory rate 2021-04-30 17:45:00 20 /min [facility] Oxygen saturation in Arterial blood by Pulse oximetry 2021-04-30 17:45:00 96 /min General acute hospital Body height 2021-04-22 19:07:00 185.5 cm [facility] Body weight 2021-04-22 19:07:00 88.5 kg [facility] BMI 2021-04-22 19:07:00 25.72 kg/m2 [facility] Respiratory rate 2021-04-30 17:32:00 21 /min [facility] Systolic blood pressure 2021-04-30 15:25:00 185 mm[Hg] General acute hospital Diastolic blood pressure 2021-04-30 15:25:00 76 mm[Hg] [facility] Heart rate 2021-04-30 15:25:00 66 /min [facility] Body temperature 2021-04-30 15:25:[address] [facility] Respiratory rate 2021-04-30 15:25:00 13 /min [facility] Oxygen saturation in Arterial blood by Pulse oximetry 2021-04-30 15:25:00 97 /min [facility] Body height 2021-04-22 19:07:00 185.5 cm [facility] Body weight 2021-04-22 19:07:00 88.5 kg [facility] BMI 2021-04-22 19:07:00 25.72 kg/m2 [facility] Procedures Procedure Date / Time Performed Performing Clinician Source SARS-COV-2 COVID-19 VACCINE BOOSTER,0.25ML,IM (MODERNA) 2021-10-08 19:19:57 Doctor Unassigned, [place] [facility] PHACOEMULSIFICATION OF CATARACT WITH INTRAOCULAR LENS IMPLANT 2021-05-28 17:43:[address] [facility] CONSENT/REFUSAL FOR DIAGNOSI S AND TREATMENT 2021-05-26 16:25:31 Doctor Unassigned, [place] [facility] ASSIGNMENT OF BENEFITS 2021-05-26 16:25:11 Doctor Unassigned, [place] [facility] PHACOEMULSIFICATION OF CATARACT WITH INTRAOCULAR LENS IMPLANT 2021-04-30 16:57:[address] [facility] Encounters Start Date/Time End Date/Time Encounter Type Admission Type Attending Clinicians Care Facility Care Department Encounter ID Source 2023-09-30 14:17:01 Outpatient Yony Hernandez [facility] [id number] [facility] 2021-09-01 09:50:53 Outpatient R ANDRÉS LYON [facility] [id number] [facility] 2021-09-01 03:53:52 Outpatient R ANDRÉS LYON [facility] OPH [id number] [facility] 2021-11-01 17:30:00 2021-11-01 17:45:00 Laboratory Only Only, Ang Db Test Lane Hoffman, [facility] [id number] [facility] 2021-11-01 17:30:00 2021-11-01 17:30:00 Outpatient ASHLEY SANDERS [facility] [id number] [facility] 2021-10-08 13:10:00 2021-10-08 13:10:[address] ARAUJO [facility] [id number] [facility] 2021-10-08 13:01:10 2021-10-08 13:01:17 Imm/Inj Visit Nurse, Sonia Pokay Immunizatio n Lane Hoffman [facility] [id number] [facility] 2021-05-28 11:45:00 2021-05-28 13:45:00 Hospital Encounter Andrés Lyon [facility] [id number] [facility] 2021-05-28 12:40:00 2021-05-28 13:19:00 Surgery Andrés Lyon [facility] [place] [id number] [facility] 2021-05-26 00:00:00 2021-05-26 00:00:00 Orders Only Doctor Unassigned, [place] [facility] [id number] [id number] [facility] 2021-04-30 10:06:00 2021-04-30 13:01:00 Hospital Encounter Andrés Lyon [facility] [place] [id number] [facility] 2021-04-30 12:02:00 2021-04-30 12:34:00 Anesthesia Event Shira Snyder Stacey [facility] [id number] [facility] 2021-04-30 11:34:00 2021-04-30 12:14:00 Surgery Andrés Lyon [facility] [id number] [facility] 2021-04-25 11:57:49 2021-04-25 12:12:49 Health Education Assistant Visit Pob, Adc Lab Main Andrés Lyon [facility] [id number] [id number] [facility] 2021-04-25 11:15:00 2021-04-25 11:15:00 Outpatient R ANDRÉS LYON [facility] [id number] [facility]
[2024-04-14 09:38] LABS: Absolute Eosinophils 0.2 K/uL (0-0.5); Absolute Lymphocytes (CBC) 1.8 K/uL (0.7-4.9); Absolute Monocytes 0.5 K/uL (0.1-1.3); Basophils % 0.8 % (0-1.3); Eosinophils % 4.4 % (0-4.4); Hematocrit 39.3 % (39.6-49.0); Hemoglobin 13.3 g/dL (13.6-17.9); Lymphocytes % 32.1 % (15.3-44.8); MCHC 33.8 g/dL (32.0-36.0); MCV 100.6 fL (80-100); MPV 7.6 fL (7.6-11.3); Monocytes % 9.5 % (3.3-12.3); Neutrophils % 53.2 % (41.7-73.7); Platelets 213 thou/uL (152-406); RBC Red Blood Cell Count 3.91 M/uL (4.33-5.43); Red Cell Distribution Width 13.6 % (12.1-15.2)
[2024-04-14 09:44] LABS: Anion Gap 8.5 mEq/L (5.0-15.0); Potassium 4.5 mEq/L (3.5-5.1)
--- NOTE | 2024-04-14 10:12 | RAD REPORT ---
EXAM DESCRIPTION: CT - Soft Tissue Neck W/Contr - 04/14/2024 9:54 am CLINICAL HISTORY: Neck pain and swelling COMPARISON: None. TECHNIQUE: Computed axial tomography of the neck was obtained. Seventy cc Isovue 300 was administer ed intravenously. Coronal and sagittal reconstruction was performed. All CT scans are performed using dose optimization technique as appropriate and may include automated exposure control or mA/KV adjustment according to patient size. FINDINGS: Edema is present within the subcutaneous tissues of the anterior mid neck. An abscess is n ot seen. The pharynx, tongue base, larynx and subglottic trachea appear unremarkable The parotid, submandibular and thyroid glands appear unremarkable. No lymphadenopathy is seen No fluid within the sinuses/mastoids IMPRESSION: Diffuse edema within the anterior subcutaneous tissues of the neck probably a cellulitis
--- NOTE | 2024-04-14 10:33 | EDPHYS ---
Physician Documentation [facility] Name: Sylvester Vazquez Age: 84 yrs Sex: Male : 1940 Arrival Date: 04/14/2024 Time: 08:41 Bed 8 Private MD: ED Physician Toi Mckeon HPI: 04/14 09:19 This 84 yrs old Male presents to ER via Ambulatory with complaints of Insect ec2 Bite. 09:19 Patient arrives today for evaluation due to concern for possible insect bite. States ec2 that yesterday he had noticed a spider on his neck and felt a crawling across his neck and subsequently is having some swelling and irritation to the anterior neck. Patient reports no difficulty swallowing, no fevers or chills, nausea or vomiting. . Historical: - Allergies: 08:45 No Known Allergies; aa5 - PMHx: 08:45 Anxiety; colorectal cancer; Hypercholesterolemia; Hypertensive disorder; aa5 - PSHx: 08:45 Tonsillectomy; aa5 - Immunization history:: Adult Immunizations unknown. - Infectious Disease History:: Denies. - Social history:: Smoking status: Patient denies any tobacco usage or history of. ROS: 09:19 Constitutional: as per hpi ec2 Exam: 09:19 Constitutional: GEN: NAD Head: atraumatic Eyes: EOMI Ears: External ears are ec2 normal. CV: regular rate LUNGS: no respiratory distress ABD: non-distended SKIN: Anterior neck with soft tissue swelling, erythema, no warmth, no discharge, questionable fluctuance MSK: no evidence of trauma NEURO: moves all extremities equally Vital Signs: 08:45 BP 146 / 72; Pulse 59; Resp 19 S; Temp 97.8(TE); Pulse Ox 98% on R/A; Weight 87.54 kg aa5 (R); Height 6 ft. 1 in. (R); 09:45 BP 134 / 66; Pulse 54; Resp 18 S; Temp 97.8(TE); Pulse Ox 98% on R/A; aa5 10:25 BP 132 / 68; Pulse 60; Resp 17; Pulse Ox 99% on R/A; rs5 08:45 Body Mass Index 25.46 (87.54 kg, 185.42 cm) aa5 MDM: 09:07 Patient medically screened. ec2 09:19 Data reviewed: vital signs. ED course: Patient arrives today for evaluation of neck ec2 swelling. Examination remarkable for skin findings as noted above. Will obtain lab work, CT imaging. Differential diagnosis includes cellulitis, localized soft tissue reaction, abscess. Given the patient's age and general skin condition, difficult to ascertain whether there is a fluid collection underlying or not.. 09:47 ED course: CBC shows slight anemia. Metabolic profile with renal dysfunction with a ec2 creatinine 1.73 and a GFR of 38. . 10:31 ED course: CT shows cellulitis. Will start the patient antibiotics, have the patient ec2 follow-up with primary care doctor. Return precautions given. . 10:33 ED course: Would like to place patient on clindamycin or doxycycline however patient ec2 was previously told by physician that Augmentin recently antibiotic is to be taking due to the diarrheal issues. Will prescribe patient Augmentin. Return precautions given. 04/14 09:18 Order name: CBC with Diff; Complete Time: 09:46 ec2 04/14 09:18 Order name: BMP; Complete Time: 09:46 ec2 04/14 09:18 Order name: CT Soft Tissue Neck W/contr; Complete Time: 10:30 ec2 Administered Medications: No medications were administered Disposition Summary: 04/14/24 10:32 Discharge Ordered Notes: Location: Home ec2 Condition: Stable ec2 Diagnosis - Cellulitis of neck ec2 Followup: ec2 - With: Private Physician - When: - Reason: Re-evaluation by your physician Discharge Instructions: - Discharge Summary Sheet ec2 - Cellulitis, Adult ec2 Forms: - Medication Reconciliation Form ec2 - Antibiotic Education ec2 - Prescription Opioid Use ec2 - Patient Portal Instructions ec2 - Leadership Thank You Letter ec2 Prescriptions: - Augmentin 875-125 mg Oral tablet - take 1 tablet ORAL route every 12 hours for 7 days; 14 tablet; Refills: 0, ec2 Product Selection Permitted Signatures: Dispatcher [employer] Maria Teresa Benitez RN RN aa5 Toi Mckeon MD MD ec2
--- NOTE | 2024-04-14 10:33 | ER ---
Nurse's Notes [facility] Name: Sylvester Vazquez Age: 84 yrs Sex: Male : 1940 Arrival Date: 04/14/2024 Time: 08:41 Bed 8 Private MD: Diagnosis: Cellulitis of neck Presentation: 04/14 08:45 Acuity: MIN 3 aa5 08:45 Chief complaint: Patient states: swollen and red area to anterior neck that he noticed aa5 yesterday. Denies trouble swallowing, denies SOB. Coronavirus screen: At this time, the client does not indicate any symptoms associated with coronavirus-19. Ebola Screen: Patient denies travel to an Ebola-affected area in the 21 days before illness onset. Initial Sepsis Screen: Does the patient meet any 2 criteria? No. Patient's initial sepsis screen is negative. Does the patient have a suspected source of infection? No. Patient's initial sepsis screen is negative. Risk Assessment: Do you want to hurt yourself or someone else? Patient reports no desire to harm self or others. Onset of symptoms was April 13, 2024. 08:45 Method Of Arrival: Ambulatory aa5 Historical: - Allergies: 08:45 No Known Allergies; aa5 - PMHx: 08:45 Anxiety; colorectal cancer; Hypercholesterolemia; Hypertensive disorder; aa5 - PSHx: 08:45 Tonsillectomy; aa5 - Immunization history:: Adult Immunizations unknown. - Infectious Disease History:: Denies. - Social history:: Smoking status: Patient denies any tobacco usage or history of. Screenin:46 [facility] ED Fall Risk Assessment (Adult) History of falling in the last 3 months, aa5 including since admission No falls in past 3 months (0 pts) Confusion or Disorientation No (0 pts) Intoxicated or Sedated No (0 pts) Impaired Gait No (0 pts) Mobility Assist Device Used No (0 pt) Altered Elimination No (0 pt) Score/Fall Risk Level 0 - 2 = Low Risk Oriented to surroundings, Maintained a safe environment, Educated pt \T\ family on fall prevention, incl call for assistance when getting out of bed. Abuse screen: Denies threats or abuse. Nutritional screening: No deficits noted. Tuberculosis screening: No symptoms or risk factors identified. Assessment: 08:45 General: Appears comfortable, Behavior is calm, cooperative. Pain: Denies pain. Neuro: aa5 Level of Consciousness is awake, alert, obeys commands, Oriented to person, place, time, situation. Cardiovascular: Patient's skin is warm and dry. Respiratory: Airway is patent Respiratory effort is even, unlabored, Respiratory pattern is regular, symmetrical. GI: No signs and/or symptoms were reported involving the gastrointestinal system. : No signs and/or symptoms were reported regarding the genitourinary system. EENT: No signs and/or symptoms were reported regarding the EENT system. Derm: Skin is pink, warm \T\ dry. Swollen area that is reddened noted to anterior neck. Musculoskeletal: Range of motion: intact in all extremities. 09:45 Reassessment: Patient is alert, oriented x 3, equal unlabored respirations, skin aa5 warm/dry/pink. 10:52 Reassessment: Patient is alert, oriented x 3, equal unlabored respirations, skin aa5 warm/dry/pink. Vital Signs: 08:45 BP 146 / 72; Pulse 59; Resp 19 S; Temp 97.8(TE); Pulse Ox 98% on R/A; Weight 87.54 kg aa5 (R); Height 6 ft. 1 in. (R); 09:45 BP 134 / 66; Pulse 54; Resp 18 S; Temp 97.8(TE); Pulse Ox 98% on R/A; aa5 10:25 BP 132 / 68; Pulse 60; Resp 17; Pulse Ox 99% on R/A; rs5 08:45 Body Mass Index 25.46 (87.54 kg, 185.42 cm) aa5 ED Course: 08:44 Patient arrived in ED. mr 08:45 Arm band placed on. aa5 08:45 Patient has correct armband on for positive identification. Bed in low position. Call aa5 light in reach. Side rails up X 1. Pulse ox on. NIBP on. 08:56 Maria Teresa Cardona, KARIS is Primary Nurse. aa5 08:59 Triage completed. aa5 09:02 Toi Mckeon MD is Attending Physician. ec2 09:27 Initial lab(s) drawn, by me, sent to lab. Inserted saline lock: 20 gauge in left jg11 antecubital area, using aseptic technique. Blood collected. 09:54 CT Soft Tissue Neck W/contr In Process Unspecified. EDMS 10:52 IV discontinued, intact, bleeding controlled, No redness/swelling at site. Pressure aa5 dressing applied. 10:52 No provider procedures requiring assistance completed. aa5 Administered Medications: No medications were administered Medication: 09:18 VIS not applicable for this client. aa5 Outcome: 10:32 Discharge ordered by . ec2 10:52 Discharged to home ambulatory, aa5 10:52 Condition: stable 10:52 Discharge instructions given to patient, Instructed on discharge instructions, follow up and referral plans. medication usage, Demonstrated understanding of instructions, follow-up care, medications, Prescriptions given X 1, 10:54 Patient left the ED. Signatures: Dispatcher [employer] EDOH Judi Craig, Reg Reg mr CardonaMaria Teresa, RN RN aa5 Charmaine Ash, RN RN Andrea Espinoza, KARIS RN rs5 Toi Mckeon MD MD ec2 Sravan Lira [id number] Corrections: (The following items were deleted from the chart) 08:56 08:53 Andera Espinoza, RN is Primary Nurse. rs aa5 08:56 08:56 Primary Nurse role handed off by Andrea Espinoza, KARIS aa5 aa5
[2024-04-14 11:05] VITALS: BP 146/72; TEMP 97.8; O2SAT 98
== END 2024-04-14 10:54 | disposition home or self-care (01) ==
LOC: ER 08:41
DX: L03.221 Cellulitis of neck (principal)
CPT/HCPCS: 85025; 80048; 36415; 70491; 99284; Q9967

== ENCOUNTER 2025-01-28 10:37 | Emergency (ER) | payer OTHER ==
--- NOTE | 2025-01-28 11:27 | RAD REPORT ---
EXAMINATION: Ankle Left 3 View CLINICAL INDICATION: Male, 84 years old. lateral malleolus;Pain;Swelling COMPARISON: No prior exam. FINDINGS: Avulsion fracture suspected off of the tip of the distal fibula. Soft tissue swelling is present late rally. No malalignment/dislocation. No significant focal degenerative change. Other: n/a IMPRESSION: Suspected avulsion fracture off of the tip of the distal fibula. No malalignment. Soft tissue swellin g is present laterally.
--- NOTE | 2025-01-28 11:35 | ER ---
Nurse's Notes [facility] Name: Sylvester Vazquez Age: 84 yrs Sex: Male : 1940 Arrival Date: 01/28/2025 Time: 10:37 Bed 5 Private MD: Diagnosis: Left distal fibula avulsion fracture Presentation: 01/28 10:53 Chief complaint: Patient states: L ankle pain that began this morning after twisting it ss while walking dog. Coronavirus screen: Client denies travel out of the [place] in the last 14 days. Ebola Screen: Patient denies exposure to infectious person. Patient denies travel to an Ebola-affected area in the 21 days before illness onset. Initial Sepsis Screen: Does the patient meet any 2 criteria? No. Patient's initial sepsis screen is negative. Does the patient have a suspected source of infection? No. Patient's initial sepsis screen is negative. Risk Assessment: Do you want to hurt yourself or someone else? Patient reports no desire to harm self or others. Onset of symptoms was January 28, 2025. 10:53 Method Of Arrival: Ambulatory ss 10:53 Acuity: MIN 3 ss Historical: - Allergies: 10:55 No Known Allergies; ss - PMHx: 10:55 Anxiety; colorectal cancer; Hypercholesterolemia; Hypertensive disorder; ss - PSHx: 10:55 Tonsillectomy; ss - Immunization history:: Adult Immunizations up to date. - Infectious Disease History:: Denies. - Social history:: Smoking status: Patient/guardian denies using tobacco, but has a distant history of tobacco abuse. - Family history:: not pertinent. - Hospitalizations: : No recent hospitalization is reported. Screenin:49 [facility] ED Fall Risk Assessment (Adult) History of falling in the last 3 months, cm10 including since admission Yes- single mechanical fall (1 pt) Confusion or Disorientation No (0 pts) Intoxicated or Sedated No (0 pts) Impaired Gait Yes (1 pt) Mobility Assist Device Used No (0 pt) Altered Elimination No (0 pt) Score/Fall Risk Level 0 - 2 = Low Risk Oriented to surroundings, Maintained a safe environment, Hourly rounding (assess needs \T\ fall precautionary measures) done. Abuse screen: Denies threats or abuse. Denies injuries from another. Nutritional screening: No deficits noted. Tuberculosis screening: No symptoms or risk factors identified. Assessment: 11:00 General: Appears in no apparent distress. comfortable, Behavior is calm, cooperative. cm10 Pain: Complains of pain in left foot Pain currently is 2 out of 10 on a pain scale. Neuro: No deficits noted. Level of Consciousness is awake, alert, obeys commands, Oriented to person, place, time, situation, Appropriate for age. Respiratory: No deficits noted. Airway is patent Respiratory effort is even, unlabored, Respiratory pattern is regular, symmetrical. Musculoskeletal: Swelling present in left lateral malleolus. Vital Signs: 10:53 BP 134 / 74; Pulse 78; Resp 16; Temp 98.2(O); Pulse Ox 95% on R/A; Weight 87.54 kg; ss Height 6 ft. 0 in. ; Pain 2/10; 10:53 Temp 98.1(O); ss 10:53 Body Mass Index 26.18 (87.54 kg, 182.88 cm) ss 10:53 Pain Scale: Adult ss ED Course: 10:41 Patient arrived in ED. al6 10:42 Lew Talley MD is Attending Physician. rn 10:55 Triage completed. ss 10:55 Arm band placed on right wrist. ss 10:56 Halley Licona, KARIS is Primary Nurse. cm10 11:10 XRAY Ankle LEFT 3 view In Process Unspecified. EDMS 11:34 Jordan Logan MD is Referral Physician. rn 11:39 3D boot applied to left foot. em1 11:49 Patient has correct armband on for positive identification. Provided Education on: cm10 follow-up instructions. Cardiac monitoring not applicable on this patient. 11:50 No provider procedures requiring assistance completed. Patient did not have IV access cm10 during this emergency room visit. Administered Medications: No medications were administered Medication: 11:49 VIS not applicable for this client. cm10 Outcome: 11:35 Discharge ordered by . rn 11:50 Discharged to home ambulatory, cm10 11:50 Condition: good 11:50 Discharge instructions given to patient, Instructed on discharge instructions, follow up and referral plans. Demonstrated understanding of instructions, follow-up care, 11:50 Patient left the ED. cm10 Signatures: Dispatcher [employer] EDMS Lew Talley MD MD rn Martinez, Eric em1 Mikaela Murguia RN RN ss Halley Licona, RN RN cm10 Alycia Moore
--- NOTE | 2025-01-28 11:35 | EDPHYS ---
Physician Documentation [facility] Name: Sylvester Vazquez Age: 84 yrs Sex: Male : 1940 Arrival Date: 01/28/2025 Time: 10:37 Bed 5 Private MD: ED Physician Lew Talley HPI: 01/28 11:28 This 84 yrs old Male presents to ER via Ambulatory with complaints of Ankle Injury. rn 11:28 The patient presents with an injury, pain. The complaints affect the left ankle. rn Patient reports rolled left ankle with inversion injury of the foot and pain to lateral malleolus just prior to arrival while walking his dog. Patient is ambulatory.. Historical: - Allergies: 10:55 No Known Allergies; ss - PMHx: 10:55 Anxiety; colorectal cancer; Hypercholesterolemia; Hypertensive disorder; ss - PSHx: 10:55 Tonsillectomy; ss - Immunization history:: Adult Immunizations up to date. - Infectious Disease History:: Denies. - Social history:: Smoking status: Patient/guardian denies using tobacco, but has a distant history of tobacco abuse. - Family history:: not pertinent. - Hospitalizations: : No recent hospitalization is reported. ROS: 11:28 Constitutional: Negative for fever, chills, and weight loss, MS/Extremity: Positive for rn left ankle injury and swelling Neuro: Negative for numbness or tingling Exam: 11:28 Constitutional: This is a well developed, well nourished patient who is awake, alert, rn and in no acute distress. MS/ Extremity: Pulses equal, no cyanosis. Neurovascular intact. Moderate lateral malleolus swelling. No open wounds or cyanosis. No tenderness of proximal tib-fib or foot. Vital Signs: 10:53 BP 134 / 74; Pulse 78; Resp 16; Temp 98.2(O); Pulse Ox 95% on R/A; Weight 87.54 kg; ss Height 6 ft. 0 in. ; Pain 2/10; 10:53 Temp 98.1(O); ss 10:53 Body Mass Index 26.18 (87.54 kg, 182.88 cm) ss 10:53 Pain Scale: Adult ss MDM: 10:42 Medical Screening Exam initiated rn 11:28 Differential diagnosis: fracture, sprain. Data reviewed: vital signs, nurses notes, rn radiologic studies, plain films, and as a result, I will discharge patient. Counseling: I had a detailed discussion with the patient and/or guardian regarding the historical points, exam findings, and any diagnostic results supporting the discharge/admit diagnosis, radiology results, the need for outpatient follow up, to return to the emergency department if symptoms worsen or persist or if there are any questions or concerns that arise at home. Special discussion: I discussed with the patient/guardian in detail that at this point there is no indication for admission to the hospital. It is understood, however, that if the symptoms persist or worsen the patient needs to return immediately for re-evaluation. Based on the history and exam findings, there is no indication for further emergent testing or inpatient evaluation. I discussed with the patient/guardian the need to see the orthopedic surgeon for further evaluation of the symptoms. 01/28 10:56 Order name: XRAY Ankle LEFT 3 view; Complete Time: 11:28 rn 01/28 11:48 Order name: Walking boot; Complete Time: 11:48 cm10 Administered Medications: No medications were administered Disposition Summary: 01/28/25 11:35 Discharge Ordered Notes: Location: Home rn Problem: new rn Symptoms: have improved rn Condition: Stable rn Diagnosis - Left distal fibula avulsion fracture rn Followup: rn - With: Jordan Logan MD - When: 1 week - Reason: Recheck today's complaints, Re-evaluation by your physician Discharge Instructions: - Discharge Summary Sheet rn - Nondisplaced Fibular Ankle Fracture Treated With Immobilization rn - Avulsion Fracture of the Foot rn Forms: - Medication Reconciliation Form rn - Antibiotic tube turner - Prescription Opioid Use rn - Patient Portal Instructions rn - Leadership Thank You Letter rn Signatures: Dispatcher [employer] Lew Foy MD MD rn Blanchard, Shelby, RN RN ss Martinez, Clarissa, RN RN cm10 Corrections: (The following items were deleted from the chart) 11:33 11:28 Constitutional: Negative for fever, chills, and weight loss, MS/Extremity: rn Positive for left ankle injury and swelling rn
[2025-01-28 11:56] VITALS: BP 134/74; TEMP 98.1; O2SAT 95
== END 2025-01-28 11:50 | disposition home or self-care (01) ==
LOC: ER 10:37
DX: S82.832A Other fracture of upper and lower end of left fibula, initial encounter for closed fracture (principal)
CPT/HCPCS: 99283